=== PATIENT | male | born 1950 | race Caucasian/White ===

== ENCOUNTER → 2018-05-01 | Outpatient (CLI) | payer MEDICARE, OTHER ==
[~2018-05-01] MED LIST: CYMBALTA PO; LYRICA PO
--- NOTE | 2018-05-01 13:58 | Diagnostic Imaging Report ---
EXAM: Scrotal Ultrasound with Duplex INDICATION: \S\SPERMATOCELE OF EPIDIDYMIS COMPARISON: None TECHNIQUE: Transverse and longitudinal images were obtained of the scrotum with grayscale imaging, color Doppler and spectral waveform analysis. FINDINGS: Right testis: Size: 3.6 x 1.8 x 2.5 cm, normal in size. Echogenicity: Normal Mass/Cysts: None. Few punctate echogenic foci are seen, representing microcalcifications. Left testis: Size: 3.3 x 2.1 x 2.7 cm, normal in size. Echogenicity: Normal Mass/Cysts: 0.2 cm lateral midpole cyst. Epididymis: Appearance: Normal in size without increased vascularity. Mass/Cysts: 0.3 cm right epididymal head cyst/spermatocele. 0.2 cm left femoral head cyst/spermatocele. Extratesticular: Masses: None Hydrocele: None Varicocele: None Doppler: Normal arterial flow to both testes and symmetrical flow on color Doppler evaluation is seen. No evidence of testicular torsion. Prominent bilateral inguinal lymph nodes are seen, containing fatty hilum. IMPRESSION: 1. No evidence of testicular torsion. 2. Unremarkable scrotal ultrasound exam. 3. Subcentimeter bilateral epididymal head cysts/spermatoceles. 4. Few nonspecific punctate right testicular calcifications. Signed by: Dr. Juan Carlos Benítez MD on 05/01/2018 1:55 PM
== END ==
LOC: US 11:43
PROVIDERS: ATTEND Urology
DX: N43.40 Spermatocele of epididymis, unspecified (principal)
CPT/HCPCS: 76870; 93976

== ENCOUNTER 2020-01-29 11:50 | Observation (INO) | payer MEDICARE, OTHER ==
[~2020-01-29] VITALS: Ht 180.3 cm; Wt 108.9 kg
--- OUTSIDE RECORDS SUMMARY | 2020-01-29 11:55 | XMS REPORT | Encounter Summary ---
Author Organization Unknown Address [address] [place] [address] Phone [phone] Care Team Providers Care Director Of Employer Services Name Role Phone Dr. Uday Woods 3 [phone] Lauri Yoder MD 107 [phone] Francisca Cullen MD 109 [phone] Reason for Visit Cellulitis and abscess of back Instructions 1. Cellulitis and abscess of back 2. Body mass index 30+ - obesity body mass index: care instructions learning about healthy weight Discussion Note: None recorded. Plan of Care Reminders Provider Appointments Est Patient 06/25/2019 10:30AM Uday Osullivan MD Est Patient 07/04/2019 8:00AM Uday Osullivan MD Lab None recorded. Referral None recorded. Procedures None recorded. Surgeries None recorded. Imaging None recorded. Medications Name Start Date Bactrim DS 800 mg-160 mg tablet Take 1 tablet every 12 hours by oral route as directed for 10 days. doxycycline monohydrate 100 mg tablet Take 1 tablet twice a day by oral route as directed for 10 days. doxycycline monohydrate 100 mg tabs finasteride 5 mg tablet Take 1 tablet every day by oral route. Lyrica 200 mg capsule Take 1 capsule every day by oral route as needed. mupirocin 2 % topical ointment APPLY A SMALL AMOUNT TO THE AFFECTED AREA BY TOPICAL ROUTE ONCE PER DAY FOR 10 DAYS Medications Administered None recorded. Vitals Height Weight BMI Blood Pressure 5 ft 8.6 in 233.2 lbs 34.8 kg/m2 130/70 mm[Hg] Lab Results None recorded. Allergies Code Code System Name Reaction Severity Status Onset 1950 RxNorm Codeine Active Problems Name Status Onset Date Source Hyperlipidemia Active 06/28/2016 Benign Prostatic Hyperplasia Active 06/28/2016 Anxiety Active 11/22/2017 Peripheral Nerve Disease Active 07/19/2018 Cellulitis and Abscess of Back Active 06/21/2019 Procedures Date Name Performed by Colonoscopy Information not avai lab Vaccine List Vaccine Type pneumococcal conjugate PCV 13 08/18/20170.5 mL zoster 08/18/20170.65 mL Social History Tobacco Smoking Status Never Smoker Past Encounters 06/22/2019 Cellulitis and Abscess of Back Uday Osullivan MD: [address] [place] [phone], Ph. 06/21/2019 Cellulitis and Abscess of Back; Body Mass Index 30+ - Obesity Uday Osullivan MD: [address] [place] [phone], Ph. 06/20/2019 Cellulitis and Abscess of Back; Body Mass Index 30+ - Obesity; Morbid Obesity Uday Osullivan MD: [address] [place] [phone], Ph. 06/19/2019 Cellulitis and Abscess of Back; Body Mass Index 30+ - Obesity; Morbid Obesity; Peripheral Vascular Disease Uday Osullivan MD: [address] [place] [phone], Ph. 06/15/2019 Cellulitis and Abscess of Back; Immunization Refused; Influenza Vaccination Declined; Body Mass Index 30+ - Obesity Uday Osullivan MD: [address] [place] [phone], Ph. History of Present Illness Note:F/u on abscess s/p I&D day #2. Doing well. Pain intensity /. Denies fever. Taking bactrim day 7 and doxycycline day 12/10. Review of Systems Comprehensive General Adult ROS Reported By: Patient Constitutional: Constitutional: no fever Cardiovascular: Cardiovascular: no chest kayleen n Respiratory: Respiratory: no cough, no wh eezing, no shortness of breath Gastrointestinal: Gastrointestinal: no abdomin al pain Neurologic: Neurologic: no loss of consc iousness, no headaches Physical Exam General Adult Exam (male) Reported By: Patient Constitutional: Level of Distress: NAD Eyes: Lids and Conjunctivae: non-i njected, no discharge Neck: Neck: trachea midline Lungs: Auscultation: breath sounds normal Cardiovascular: Heart Auscultation: RRR, nor mal S1, normal S2, no murmurs Musculoskeletal:: Motor Strength and Tone: nor mal, normal tone Neurologic: Gait and Station: normal gai t Skin: Inspection and palpation: ; Mass in the posterior part of R shoulder, erythematous, soft, tender with palpation, 6-7 cms in diameter approximately. Draining purulent discharge. Packing strip in place
--- OUTSIDE RECORDS SUMMARY | 2020-01-29 11:55 | XMS REPORT | Encounter Summary ---
Author Organization Unknown Address [address] [place] [address] Phone [phone] Care Team Providers Care Pharmacy Data Analyst Name Role Phone Dr. Uday Woods 3 [phone] Lauri Yoder MD 107 [phone] Francisca Cullen MD 109 [phone] Reason for Visit skin leison/mole Instructions 1. Cellulitis and abscess of back Bactrim DS 800 mg-160 mg tablet ceftriaxone 1 gram solution for inject ion 2. Immunization refused 3. Influenza vaccination declined 4. Body mass index 30+ - obesity body mass index: care instructions learning about healthy weight Discussion Note: None recorded. Plan of Care Reminders Provider Appointments Est Patient 06/21/2019 11:45AM Uday Osullivan MD Est Patient 07/04/2019 8:00AM Uday Osullivan MD Lab None recorded. Referral None recorded. Procedures None recorded. Surgeries None recorded. Imaging None recorded. Medications Name Start Date Bactrim DS 800 mg-160 mg tablet Take 1 tablet every 12 hours by oral route as directed for 10 days. ceftriaxone 1 gram solution for injectio n Take 1 g by injection route. clonazepam 0.5 mg tablet TAKE 1 TABLET BY MOUTH ONCE DAILY NEEDED finasteride 5 mg tablet Take 1 tablet every day by oral route. Lyrica 200 mg capsule Take 1 capsule every day by oral route as needed. restasis 0.05 % emul twice a day. BD 06-15-19 simvastatin 40 mg tablet Take 1 tablet every day by oral route for 90 days. tamsulosin 0.4 mg capsule TAKE 1 CAPSULE BY MOUTH ONCE DAILY DIRECTED Medications Administered Name Date ceftriaxone 1 gram solution for injectio n Take 1 g by injection route. [id number]:26:53 Vitals Height Weight BMI Blood Pressure 5 ft 8.6 in 235.6 lbs 35.2 kg/m2 130/68 mm[Hg] Lab Results None recorded. Allergies Code Code System Name Reaction Severity Status Onset 2670 RxNorm Codeine Active Problems Name Status Onset Date Source Hyperlipidemia Active 06/28/2016 Benign Prostatic Hyperplasia Active 06/28/2016 Anxiety Active 11/22/2017 Peripheral Nerve Disease Active 07/19/2018 Procedures Date Name Performed by Colonoscopy Information not avai lable Vaccine List Vaccine Type pneumococcal conjugate PCV 13 08/18/20170.5 mL zoster 08/18/20170.65 mL Social History Tobacco Smoking Status Never Smoker Past Encounters 06/15/2019 Cellulitis and Abscess of Back; Immunization Refused; Influenza Vaccination Declined; Body Mass Index 30+ - Obesity Uday Osullivan MD: [address] [place] [phone], Ph. History of Present Illness Note:Pt presents with a bump in the posterior right shoulder. Pt first noticed the bump about 6-8 months ago but it did not cause any pain. Pt states that it is painful to touch, rates the pain 8/10 since a few days ago. Pt denies itchiness or trying any otc medications. Review of Systems Comprehensive General Adult ROS Reported By: Patient Constitutional: Constitutional: no fever Cardiovascular: Cardiovascular: no chest kayleen n Respiratory: Respiratory: no cough, no wh eezing, no shortness of breath Gastrointestinal: Gastrointestinal: no abdomin al pain Integumentary: Skin: growths/lesions Neurologic: Neurologic: no loss of consc iousness, no headaches Physical Exam General Adult Exam (male) Reported By: Patient Constitutional: General Appearance: healthy- appearing. Level of Distress: NAD Eyes: Lids and Conjunctivae: non-i njected, no discharge Neck: Neck: trachea midline Lungs: Auscultation: breath sounds normal Cardiovascular: Heart Auscultation: RRR, nor mal S1, normal S2, no murmurs Musculoskeletal:: Motor Strength and Tone: nor mal, normal tone Neurologic: Gait and Station: normal gai t Skin: Inspection and palpation: ; Mass in the posterior part of R shoulder, erythematous, soft, mobile and tender with palpation, 10 cms in diameter approximately
--- OUTSIDE RECORDS SUMMARY | 2020-01-29 11:55 | XMS REPORT | Encounter Summary ---
Author Organization Unknown Address [address] [place] [address] Phone [phone] Care Team Providers Care Mobile Phone Salesperson Name Role Phone Dr. Uday Woods 3 [phone] Lauri Yoder MD 107 [phone] Francisca Cullen MD 109 [phone] Reason for Visit cellulitis Instructions 1. Cellulitis and abscess of back 2. Body mass index 30+ - obesity body mass index: care instructions learning about healthy weight 3. Morbid obesity Discussion Note: None recorded. Plan of Care Reminders Provider Appointments Est Patient 07/04/2019 8:00AM Uday Osullivan MD [...] every day by oral route as needed. Medications Administered None recorded. Vitals Height Weight BMI Blood Pressure 5 ft 8.6 in 233.2 lbs 34.8 kg/m2 131/74 mm[Hg] Lab Results None recorded. Allergies Code Code System Name Reaction Severity Status Onset 5590 RxNorm Codeine Active Problems Name Status Onset [...] Tobacco Smoking Status Never Smoker Past Encounters 06/21/2019 Body Mass Index 30+ - Obesity; Cellulitis and Abscess of Back Uday Osullivan MD: [address] [place] [phone], Ph. 06/20/2019 Cellulitis and Abscess of Back; Body Mass Index 30+ - Obesity; Morbid Obesity Uday Osullivan MD: [address] [place] [phone], Ph. 06/19/2019 Cellulitis and Abscess of Back; Body Mass Index 30+ - Obesity; Morbid Obesity; Peripheral Vascular Disease Uday Osullivan MD: [address] [place] [phone], Ph. 06/15/2019 Cellulitis and Abscess of Back; Immunization Refused; Influenza Vaccination Declined; Body Mass Index 30+ - Obesity Uday Osullivan MD: [address] [place] [phone], Ph. History of Present Illness Note:F/u on abscess s/p I&D. Feeling better. Pain has decreased progressively (intensity 11/12). Denies fever. Taking bactrim day 03/12 and doxycycline day 11/12. Review of Systems Comprehensive General Adult ROS Reported By: Patient Constitutional: Constitutional: no fever Cardiovascular: Cardiovascular: no chest kayleen n Respiratory: Respiratory: no cough, no wh eezing, no shortness of breath Gastrointestinal: Gastrointestinal: no abdomin al pain Neurologic: Neurologic: no loss of consc iousness, no headaches Physical Exam General Adult Exam (male) Reported By: Patient Constitutional: Level of Distress: mild dist ress Eyes: Lids and Conjunctivae: non-i njected, no [...] erythematous, soft, mobile and tender with palpation, 8 cms in diameter approximately. Draining purulent discharge. Packing strip in place
--- OUTSIDE RECORDS SUMMARY | 2020-01-29 11:55 | XMS REPORT | Encounter Summary ---
Author Organization Unknown Address [address] [place] [address] Phone [phone] Care Team Providers Care Dumper Bulk System Name Role Phone Dr. Uday Woods 3 [phone] Lauri Yoder MD 107 [phone] Francisca Cullen MD 109 [phone] Reason for Visit Anxiety; Advance Care Plan; AWV [facility] Male (VFP) Instructions 1. Adult health examination CMP, serum or plasma lipid panel, serum HbA1c (hemoglobin A1c), blood PSA, serum or plasma TSH, serum or plasma 2. Anxiety buspirone 10 mg tablet 3. Dry eyes 4. Advance directive discussed with van ent advance care planning: care instructio estela advance care planning: care instructio ns 5. Depression screening 6. Body mass index 30+ - obesity body mass index: care instructions learning about healthy weight Discussion Note: None recorded. Plan of Care Patient Instructions It was good to see you in the office [facility] for your Medicare Annual Wellness Visit. You have been provided some information on healthy nutrition, including a diet rich in fruits and vegetables, minimizing simple carbohydrates, salt, and saturated fats. I want to encourage regular cardiovascular exercise such as walking at least 30 minutes daily, 5 times per week. Please remember to schedule any preventive health measures that we talked about today. You have also been provided education on fall prevention and community- based lifestyle interventions to help reduce health risks and promote healthy living in your Annual Wellness folder. Screening Recommendations 1. Vaccines Pneumonia: Recommended today Influenza: Recommended today 2. Colorectal Cancer Screening: Colonoscopy (every 10 years) Recommended today 3. Annual Prostate Screening 4. Annual Depression Screening 5. Annual Alcohol Screening 6. Annual Fall Risk Screening 7. Annual Health Risk Assessment Patient Instructions on Filing Advance Directives Be sure that you have easy access to your paperwork for your medical power of commercial lines underwriter and advanced directives. Be sure that the designated person as well as important family members have copies of those forms as well. Please have contact information of your designee readily available. In the event of hospitalization, please bring those important documents with you for reference. Reminders Provider Appointments None recorded. Lab CMP, Serum or Plasma 10/19/2019 [facility] - Laboratory Lipid Panel, Serum 10/19/2019 [facility] HbA1C (Hemoglobin a1C), Blood 10/19/2019 [facility] PSA, Serum or Plasma 10/19/2019 [facility] - Laboratory TSH, Serum or Plasma 10/19/2019 [facility] - Laboratory Referral None recorded. Procedures None recorded. Surgeries None recorded. Imaging None recorded. Medications Name Start Date buspirone 10 mg tablet Take 1 tablet twice a day by oral route. Lyrica 200 mg capsule Take 1 capsule every day by oral route as needed. mupirocin 2 % topical ointment APPLY A SMALL AMOUNT TO THE AFFECTED AREA BY TOPICAL ROUTE ONCE PER DAY FOR 10 DAYS simvastatin 40 mg tablet TAKE 1 TABLET BY MOUTH ONCE DAILY DUE JENNIFER!! Medications Administered None recorded. Vitals Height Weight BMI Blood Pressure 5 ft 8.6 in 222.8 lbs 33.3 kg/m2 126/76 mm[Hg] Results Lab Results None recorded. 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 History of Present Illness Mini Cog Reported By: Patient Functional Ability: Personal/Social/ Draw a cloc k and write in the numbers in the correct place, and set the time to 10 minutes after 11 o'clock was completed correctly? Yes, 3 word recall: Your nurse or doctor will ask you to remember 3 words. In 5 minutes, they will ask you to repeat them. Patient recalled 3 words Opioid Use Assessment Reported By: Patient Opioid Use Assessment:: Current Use of Opioids : no use of opioids (no further questions required) Note:<div>Patient presents to the clinic today with the following concern(s):< div> <div>1) AWV<div> <div><div>2) DRY EYES</div><div> - followed by mash filter operator who believes tamsulosin is causing volume depletion and dry eyes. Uses prescribed eye drops with limited relief. Tamsulosin has helped with nocturia but has difficulty seeing and driving with dry eyes. </div><div>
</div><div> 3) ANXIETY </div><div>- has been taking clonazepam 0.5mg for several months. Breaks pill into fourths and takes throughout the day. States whole tablet makes him sleepy and half tablet makes him drowsy. Believes this regimen helps keep him calm throughout the day. <div>
</div></div></div></div></div></div></div> <div>
</div>I'd like to talk about what is ahead with your illness and do some thinking in advance about what is important to you so I can make sure we provide you with the care you want-is that okay? {{Yes*|No}} Review of Systems Comprehensive General Adult ROS Reported By: Patient Constitutional: Constitutional: no fever, no night sweats, no significant weight gain, no significant weight loss, no exercise intolerance Eyes: Eyes: no vision change, no i rritation, dry eyes ENMT: Ears: no difficulty hearing, no ear pain. Nose: no frequent nosebleeds, no nose problems, no sinus problems. Mouth/Throat: no sore throat, no bleeding gums, no snoring, no dry mouth, no mouth ulcers, no oral abnormalities, no teeth problems Cardiovascular: Cardiovascular: no chest kayleen n, no arm pain on exertion, no shortness of breath when walking, no shortness of breath when lying down, no palpitations, no known heart murmur, no lightheadedness Respiratory: Respiratory: no cough, no wh eezing, no shortness of breath, no coughing up blood, no sleep apnea Gastrointestinal: Gastrointestinal: no abdomin al pain, no nausea, no vomiting, no constipation, normal appetite, no diarrhea, not vomiting blood, no dyspepsia, no GERD Genitourinary: Genitourinary: no incontinen ce, no difficulty urinating, no hematuria, no increased frequency Musculoskeletal: Musculoskeletal: no muscle a ches, no muscle weakness, no arthralgias/joint pain, no back pain, no swelling in the extremities Integumentary: Skin: no abnormal mole, no j aundice, no rashes, no laceration Neurologic: Neurologic: no loss of consc iousness, no weakness, no numbness, no seizures, no dizziness, no migraines, no headaches, no tremor Psychiatric: Psych: no depression, no sle ep disturbances, feeling safe in a relationship, no alcohol abuse, no anxiety, no hallucinations, no suicidal thoughts Endocrine: Endocrine: no fatigue Hematologic/Lymphatic: Hematologic/Lymphatic no swo llen glands, no bruising, no excessive bleeding Allergic/Immunologic: Allergy/Immunologic: no runn y nose, no sinus pressure, no itching, no hives, no frequent sneezing Physical Exam General Adult Exam (male) Reported By: Patient Constitutional: General Appearance: healthy- appearing, well-nourished, well- developed. Level of Distress: NAD. Ambulation: ambulating normally Psychiatric: Insight: good judgement. Men gary Status: active and alert, normal mood, normal affect. Memory: recent memory normal, remote memory normal Head: Head: normocephalic, atrauma tic Eyes: Lids and Conjunctivae: non-i njected, no discharge, no pallor. Pupils: PERRLA. Corneas: grossly intact. EOM: EOMI. Lens: clear. Sclerae: non-icteric. Vision: peripheral vision grossly intact, acuity grossly intact ENMT: Ears: no lesions on external ear, EACs clear, TMs clear, TM mobility normal. Hearing: no hearing loss. Nose: no lesions on external nose, nares patent, no septal deviation, nasal passages clear, no sinus tenderness, no nasal discharge. Lips, Teeth, and Gums: no mouth or lip ulcers, no bleeding gums, normal dentition. Oropharynx: moist mucous membranes, no erythema, no exudates, tonsils not enlarged Neck: Neck: supple, trachea midlin e, no masses, FROM. Thyroid: no enlargement, non-tender, no nodules Lungs: Respiratory effort: no dyspn ea. Percussion: no dullness, flatness, or hyperresonance. Auscultation: breath sounds normal, good air movement, no wheezing, no rales/crackles, no rhonchi Cardiovascular: Apical Impulse: not displace d. Heart Auscultation: RRR, normal S1, normal S2, no murmurs, no rubs, no gallops. Pulses including femoral / pedal: normal throughout Abdomen: Bowel Sounds: normal. Inspec tion and Palpation: soft, non-distended, no tenderness, no guarding, no rebound tenderness, no masses. Liver: non-tender, no hepatomegaly. Spleen: non-tender, no splenomegaly. Hernia: none palpable Musculoskeletal:: Motor Strength and Tone: nor mal, normal tone. Joints, Bones, and Muscles: normal movement of all extremities, no contractures, no bony abnormalities, no malalignment, no tenderness. Extremities: no cyanosis, no edema, no varicosities Neurologic: Gait and Station: normal gai t, normal station. Cranial Nerves: grossly intact. Sensation: grossly intact. Reflexes: DTRs 2+ bilaterally throughout Skin: Inspection and palpation: no rash, no lesions, no abnormal nevi, no ulcer, no induration, no nodules, good turgor, no jaundice Back: Thoracolumbar Appearance: no rmal curvature"
--- OUTSIDE RECORDS SUMMARY | 2020-01-29 11:55 | XMS REPORT | Encounter Summary ---
Author Organization Unknown Address [address] [place] [address] Phone [phone] Care Team Providers Care Program Schedule Clerk Name Role Phone Dr. Uday Woods 3 [phone] Lauri Yoder MD 107 [phone] Francisca Cullen MD 109 [phone] Reason for Visit other - see typed reason Instructions 1. Cellulitis and abscess of back mupirocin 2 % topical ointment Discussion Note: None recorded. Patient educational handouts: No information available. Plan of Care Reminders Provider Appointments Est Patient 07/05/2019 8:00AM Uday Osullivan MD Lab None recorded. Referral None recorded. Procedures None recorded. Surgeries None recorded. Imaging None recorded. Medications Name Start Date Bactrim DS 800 mg-160 mg tablet Take 1 tablet every 12 hours by oral route as directed for 10 days. doxycycline monohydrate 100 mg tablet Take 1 tablet twice a day by oral route as directed for 10 days. finasteride 5 mg tablet Take 1 tablet every day by oral route. Lyrica 200 mg capsule Take 1 capsule every day by oral route as needed. mupirocin 2 % topical ointment APPLY A SMALL AMOUNT TO THE AFFECTED AREA BY TOPICAL ROUTE ONCE PER DAY FOR 10 DAYS Medications Administered None recorded. Vitals Height Weight BMI Blood Pressure 5 ft 8.6 in 233 lbs 34.8 kg/m2 130/64 mm[Hg] Lab Results None recorded. Allergies Code [...] Tobacco Smoking Status Never Smoker Past Encounters 06/25/2019 Cellulitis and Abscess of Back; Obesity Uday Osullivan MD: [address] [place] [phone], Ph. 06/22/2019 Cellulitis and Abscess of Back Uday Osullivan MD: [address] [place] [phone], Ph. 06/21/2019 Cellulitis and Abscess of Back; Body Mass Index 30+ - Obesity Uday Osullivan MD: [address] [place] [phone], Ph. 06/20/2019 Cellulitis and Abscess of Back; Body Mass Index 30+ - Obesity; Morbid Obesity Uday Osullivan MD: [address] [place] [phone], Ph. 06/19/2019 Cellulitis and Abscess of Back; Body Mass Index 30+ - Obesity; Morbid Obesity; Peripheral Vascular Disease Uday Osullivan MD: [address] [place] [phone], Ph. 06/15/2019 Cellulitis and Abscess of Back; Immunization Refused; Influenza Vaccination Declined; Body Mass Index 30+ - Obesity Uday Osullivan MD: [address] [place] [phone], Ph. History of Present Illness Note:F/u on abscess s/p I&D day #3. Doing well. Pain intensity 2/10. Denies fever. Taking bactrim day 8 and doxycycline day 01/10. Review of Systems Comprehensive General Adult ROS [...] posterior part of R shoulder, erythematous, soft, mildly tender with palpation, 5 cms in diameter approximately. Draining purulent discharge. Packing strip in place
--- OUTSIDE RECORDS SUMMARY | 2020-01-29 11:55 | XMS REPORT | Encounter Summary ---
Author Organization Unknown Address [address] [place] [address] Phone [phone] Care Team Providers Care Video Tape Duplicator Name Role Phone Dr. Uday Woods 3 [phone] Lauri Yoder MD 107 [phone] Francisca Cullen MD 109 [phone] Reason for Visit Cellulitis and abscess of back Instructions 1. Cellulitis and abscess of back Discussion Note: None recorded. Patient educational handouts: No information available. Plan of Care Reminders Provider Appointments None recorded. Lab None recorded. Referral None recorded. Procedures None recorded. Surgeries None recorded. Imaging None recorded. Medications Name Start Date Keflex 500 mg capsule Take 1 capsule every 8 hours by oral route as directed for 10 days. Lyrica 200 mg capsule Take 1 capsule every day by oral route as needed. mupirocin 2 % topical ointment APPLY A SMALL AMOUNT TO THE AFFECTED AREA BY TOPICAL ROUTE ONCE PER DAY FOR 10 DAYS Medications Administered None recorded. Vitals Height Weight BMI Blood Pressure 5 ft 8.6 in 227 lbs 33.9 kg/m2 120/68 mm[Hg] Results Lab Results None recorded. Allergies Code Code System Name Reaction Severity Status Onset 5510 RxNorm Codeine Active Problems Name Status Onset [...] Tobacco Smoking Status Never Smoker Past Encounters 07/10/2019 Cellulitis and Abscess of Back Uday Osullivan, MD: [address] [place] [phone], Ph. 07/05/2019 Cellulitis and Abscess of Back Uday Osullivan MD: [address] [place] [phone], Ph. 06/25/2019 Cellulitis and Abscess of Back; Contact Dermatitis; Obesity Uday Osullivan MD: [address] [place] [phone], Ph. 06/22/2019 Cellulitis and Abscess of Back Udayhyacinth Osullivan MD: [address] [place] [phone], Ph. 06/21/2019 Cellulitis and Abscess of Back; Body Mass Index 30+ - Obesity Uday Osullivan MD: [address] [place] [phone], Ph. 06/20/2019 Cellulitis and Abscess of Back; Body Mass Index 30+ - Obesity; Morbid Obesity Uday Osullivan MD: [address] [place] [phone], Ph. 06/19/2019 Cellulitis and Abscess of Back; Body Mass Index 30+ - Obesity; Morbid Obesity; Peripheral Vascular Disease Uday Osullivan MD: [address] [place] [phone], Ph. 06/15/2019 Cellulitis and Abscess of Back; Immunization Refused; Influenza Vaccination Declined; Body Mass Index 30+ - Obesity Uday Osullivan MD: [address] [place] [phone], Ph. History of Present Illness Note:F/u on abscess. S/p I&D on 06/19/19. Doing well. Pt completed treatment with doxycycline. Denies pain or discharge. Review of Systems:ROS as noted in the HPI Review of Systems Comprehensive General Adult ROS [...] no discharge Neck: Neck: trachea midline Lungs: Respiratory effort: no dyspn ea Musculoskeletal:: Motor Strength and Tone: nor mal, normal tone Neurologic: Gait and Station: normal gai t Skin: Inspection and palpation: ; Induration in the posterior part of R shoulder, 1 cm in diameter approximately. Non tender. No discharge. Mild erythema
--- OUTSIDE RECORDS SUMMARY | 2020-01-29 11:55 | XMS REPORT | Encounter Summary ---
Author Organization Unknown Address [address] [place] [address] Phone [phone] Care Team Providers Care Solar Consultant Name Role Phone Dr. Uday Woods 3 [phone] Lauri Yoder MD 107 [phone] Francisca Cullen MD 109 [phone] Reason for Visit cellulitis Instructions 1. Cellulitis and abscess of back ceftriaxone 1 gram solution for inject ion doxycycline monohydrate 100 mg tablet 2. Body mass index 30+ - obesity body mass index: care instructions learning about healthy weight 3. Morbid obesity 4. Peripheral vascular disease Discussion Note: None recorded. Plan of Care Reminders Provider Appointments [facility] 06/21/2019 8:30AM Uday Osullivan MD Est Patient 07/04/2019 8:00AM Uday Osullivan MD Lab None recorded. Referral None recorded. Procedures None recorded. Surgeries None recorded. Imaging None recorded. Medications Name Start Date Bactrim DS 800 mg-160 mg tablet Take 1 tablet every 12 hours by oral route as directed for 10 days. ceftriaxone 1 gram solution for injectio n Take 1 g by injection route. doxycycline monohydrate 100 mg tablet Take 1 tablet twice a day by oral route as directed for 10 days. finasteride 5 mg tablet Take 1 tablet every day by oral route. Lyrica 200 mg capsule Take 1 capsule every day by oral route as needed. sulfamethoxazole/trimethoprim ds 800-160 mg tabs once a night. Medications Administered Name Date ceftriaxone 1 gram solution for injectio n Take 1 g by injection route. [id number]:38:00 Vitals Height Weight BMI Blood Pressure 5 ft 8.6 in 233.4 lbs 34.9 kg/m2 127/79 mm[Hg] Lab Results None recorded. Allergies Code Code System Name Reaction Severity Status Onset 2669 RxNorm Codeine Active Problems Name Status Onset Date Source Hyperlipidemia Active 06/28/2016 Benign Prostatic Hyperplasia Active 06/28/2016 Anxiety Active 11/22/2017 Peripheral Nerve Disease Active 07/19/2018 Procedures Date Name Performed by Colonoscopy Information not avai lable Vaccine List Vaccine Type pneumococcal conjugate PCV 13 08/18/20170.5 mL zoster 08/18/20170.65 mL Social History Tobacco Smoking Status Never Smoker Past Encounters 06/20/2019 Cellulitis and Abscess of Back; Body Mass Index 30+ - Obesity Uday Osullivan MD: [address] [place] [phone], Ph. 06/19/2019 Cellulitis and Abscess of Back; Body Mass Index 30+ - Obesity; Morbid Obesity; Peripheral Vascular Disease Uday Osullivan MD: [address] [place] [phone], Ph. 06/15/2019 Cellulitis and Abscess of Back; Immunization Refused; Influenza Vaccination Declined; Body Mass Index 30+ - Obesity Uday Osullivan MD: [address] [place] [phone], Ph. History of Present Illness Note:presents with a bump in the posterior right shoulder. Pt first noticed the bump about 6-8 months ago but it did not cause any pain. Pt states that it is painful to touch, rates the pain 10/10. Pt states that pain has worsened since his last visit,(last Tuesday). Pt also states that it now has puss pockets, first noticed last night but seems as if they have multiplied over night. Pt states that it is very red, inflamed and sensitive to touch. Pt has not completed the course of the antibiotic. Lesion has moved further down back since last visit causing intense pain. Pain is exacerbated with movement. Review of Systems Comprehensive General Adult ROS Reported By: Patient Constitutional: Constitutional: no fever Cardiovascular: Cardiovascular: no chest kayleen n Respiratory: Respiratory: no cough, no wh eezing, no shortness of breath Gastrointestinal: Gastrointestinal: no abdomin al pain Neurologic: Neurologic: no loss of consc iousness, no headaches Physical Exam General Adult Exam (male) Reported By: Patient Constitutional: Level of Distress: moderate distress Eyes: Lids and Conjunctivae: non-i njected, no [...] tender with palpation, 10 cms in diameter approximately. Draining purulent discharge
--- OUTSIDE RECORDS SUMMARY | 2020-01-29 11:55 | XMS REPORT | Encounter Summary ---
Author Organization Unknown Address [address] [place] [address] Phone [phone] Care Team Providers Care Artificial Breeding Distributor Name Role Phone Dr. Uday Woods 3 [phone] Lauri Yoder MD 107 [phone] Francisca Cullen MD 109 [phone] Reason for Visit other - see typed [...] Abscess of Back; Obesity Uday Osullivan MD: [address] [place] [phone], Ph. 06/22/2019 Cellulitis and Abscess of Back Uday Osullivan MD: [address] [place] [phone], Ph. 06/21/2019 Cellulitis and Abscess of Back; Body Mass Index 30+ - Obesity Uday Osullivan MD: [address] [place] [phone], Ph. 06/20/2019 Cellulitis and Abscess of Back; Body Mass Index 30+ - Obesity; Morbid Obesity Uday Osullivan MD: [address] [place] [phone], Ph. 06/19/2019 Cellulitis and Abscess of Back; Body Mass Index 30+ - Obesity; Morbid Obesity; Peripheral Vascular Disease Uday Osullivan MD: [address] [place] [phone], Ph. 06/15/2019 Cellulitis and Abscess of Back; Immunization Refused; Influenza Vaccination Declined; Body Mass Index 30+ - Obesity Uday Osullivan MD: [address] [place] [phone], Ph. History of Present Illness Note:F/u on [...] posterior part of R shoulder, erythematous, soft, mild tender with palpation, 5 cms in diameter approximately. Draining purulent discharge. Packing strip in place
--- OUTSIDE RECORDS SUMMARY | 2020-01-29 11:55 | XMS REPORT ---
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 Problem Active 2019-07-03 00:00:00 Morbid obesity Morbid Obesity Problem Active 2019-07-03 00:00:00 Senile purpura Senile Purpura Problem Active 2019-07-03 00:00:00 Cellulitis and abscess of back Cellulitis and Abscess of Back Probl em Active 2019-06-21 00:00:00 Peripheral vascular disease Peripheral Vascular Disease Problem Active 2019-06-19 00:00:00 Peripheral nerve disease Peripheral Nerve Disease Problem Acti ve 2018-07-19 00:00:00 Anxiety Anxiety Problem Active 2017-11-22 00:00:00 Hyperlipidemia Hyperlipidemia Problem Active 2016-06-28 00:00:00 Benign prostatic hyperplasia Benign Prostatic Hyperplasia Problem Active 2016-06-28 00:00:00 Allergies, Adverse Reactions, Alerts Allergy Name Allergy Type Status Severity Reaction(s) Onset Date Inacti ve Date Treating Clinician Comments Codeine Allergy to substance Active Medications Ordered Medication Name Filled Medication Name Start Date Stop Da te Current Medication? Ordering Clinician Indication Dosage Frequency Signature (SIG) Comments Components buspirone 10 mg tablet Take 1 tablet twice a day by or al route. buspirone 10 mg tablet Take 1 tablet twice a day by oral route. No 1 BID buspirone 10 mg tablet Take 1 tablet twice a day by oral route. Lyrica 200 mg capsule Take 1 capsule every day by oral route as needed. Lyrica 200 mg capsule Take 1 capsule every day by oral route as needed. No 1capsule(s) Q1D Lyrica 200 mg capsule Take 1 capsule every day by oral route as needed. mupirocin 2 % topical ointment APPLY A S MALL AMOUNT TO THE AFFECTED AREA BY TOPICAL ROUTE ONCE PER DAY FOR 10 DAYS mupirocin 2 % topical ointment APPLY A SMALL AMOUNT TO THE AFFECTED AREA BY TOPICAL ROUTE ONCE PER DAY FOR 10 DAYS No mupirocin 2 % t opical ointment APPLY A SMALL AMOUNT TO THE AFFECTED AREA BY TOPICAL ROUTE ONCE PER DAY FOR 10 DAYS simvastatin 40 mg tablet TAKE 1 TABLET BY MOUTH ONCE D AILY DUE JENNIFER!! simvastatin 40 mg tablet TAKE 1 TABLET BY MOUTH ONCE DAILY DUE JENNIFER!! No simvastatin 40 mg tablet MARYANN E 1 TABLET BY MOUTH ONCE DAILY DUE JENNIFER!! Immunizations Ordered Immunization Name Filled Immunization Name Date Sta tus Comments pneumococcal conjugate PCV 13 pneumococcal conjugate PCV 13 2016 11:32:00 Completed zoster live zoster live 2017-08-18 11:28:00 Completed Vital Signs Vital Name Observation Time Observation Value Comments BP Diastolic 2019-10-19 00:00:00 76 mm[Hg] Height 2019-10-19 00:00:00 68.6 [in_i] BP Systolic 2019-10-19 00:00:00 126 mm[Hg] Body Weight 2019-10-19 00:00:00 222.8 [lb_av] BP Diastolic 2019-07-10 00:00:00 68 mm[Hg] Height 2019-07-10 00:00:00 68.6 [in_i] BP Systolic 2019-07-10 00:00:00 120 mm[Hg] Body Weight 2019-07-10 00:00:00 227 [lb_av] BP Diastolic 2019-07-05 00:00:00 72 mm[Hg] Height 2019-07-05 00:00:00 68.6 [in_i] BP Systolic 2019-07-05 00:00:00 130 mm[Hg] Body Weight 2019-07-05 00:00:00 229.6 [lb_av] BP Diastolic 2019-06-25 00:00:00 68 mm[Hg] Height 2019-06-25 00:00:00 68.6 [in_i] BP Systolic 2019-06-25 00:00:00 130 mm[Hg] Body Weight 2019-06-25 00:00:00 232.8 [lb_av] BP Diastolic 2019-06-22 00:00:00 64 mm[Hg] Height 2019-06-22 00:00:00 68.6 [in_i] BP Systolic 2019-06-22 00:00:00 130 mm[Hg] Body Weight 2019-06-22 00:00:00 233 [lb_av] BP Diastolic 2019-06-21 00:00:00 70 mm[Hg] Height 2019-06-21 00:00:00 68.6 [in_i] BP Systolic 2019-06-21 00:00:00 130 mm[Hg] Body Weight 2019-06-21 00:00:00 233.2 [lb_av] BP Diastolic 2019-06-20 00:00:00 74 mm[Hg] Height 2019-06-20 00:00:00 68.6 [in_i] BP Systolic 2019-06-20 00:00:00 131 mm[Hg] Body Weight 2019-06-20 00:00:00 233.2 [lb_av] BP Diastolic 2019-06-19 00:00:00 79 mm[Hg] Height 2019-06-19 00:00:00 68.6 [in_i] BP Systolic 2019-06-19 00:00:00 127 mm[Hg] Body Weight 2019-06-19 00:00:00 233.4 [lb_av] BP Diastolic 2019-06-15 00:00:00 68 mm[Hg] Height 2019-06-15 00:00:00 68.6 [in_i] BP Systolic 2019-06-15 00:00:00 130 mm[Hg] Body Weight 2019-06-15 00:00:00 235.6 [lb_av] BP Diastolic 2019-04-03 00:00:00 72 mm[Hg] Height 2019-04-03 00:00:00 68.6 [in_i] BP Systolic 2019-04-03 00:00:00 138 mm[Hg] Body Weight 2019-04-03 00:00:00 233 [lb_av] BP Diastolic 2018-12-26 00:00:00 78 mm[Hg] Height 2018-12-26 00:00:00 68.6 [in_i] BP Systolic 2018-12-26 00:00:00 124 mm[Hg] Body Weight 2018-12-26 00:00:00 227 [lb_av] BP Diastolic 2018-12-08 00:00:00 62 mm[Hg] Height 2018-12-08 00:00:00 68.6 [in_i] BP Systolic 2018-12-08 00:00:00 110 mm[Hg] Body Weight 2018-12-08 00:00:00 227.4 [lb_av] Plan of Care Planned Activity Planned Date Comments Encounters Start Date/Time End Date/Time [facility]counter ID 2019-11-12 09:01:00 2019-11-12 09:01:00 Outpatient [id number] 2019-10-19 00:00:00 2019-10-19 00:00:00 Maik Hassan , DO: [address] [place] [address], Ph. [facility] [id number] 2019-07-10 00:00:00 2019-07-10 00:00:00 Uday olvera MD: [address] [place] [address], Ph. [facility] [id number] 00:00:00 2019-07-05 00:00:00 Uday olvera MD: [address] [place] [address], Ph. [facility] [id number] 00:00:00 2019-06-25 00:00:00 Uday olvera MD: [address] [place] [address], Ph. [facility] [id number] 2019-06-22 00:00:00 2019-06-22 00:00:00 Uday olvera MD: [address] [place] [address], Ph. [facility] [id number] 00:00:00 2019-06-21 00:00:00 Uday olvera MD: [address] [place] [address], Ph. [facility] [place] [id number] 2019-06-20 00:00:00 2019-06-20 00:00:00 Uday olvera MD: [address] [place] [address], Ph. [facility] [place] [id number] 2019-06-19 00:00:00 2019-06-19 00:00:00 Uday olvera MD: [address] [place] [address], Ph[address] [facility] [place] [id number] 2019-06-15 00:00:00 2019-06-15 00:00:00 Uday olvera MD: [address] [place] [address], Ph. [facility] [place] [id number] 2019-04-03 00:00:00 2019-04-03 00:00:00 Uday olvera MD: [address] [place] [address], Ph. [facility] [place] [id number] 2018-12-26 00:00:00 2018-12-26 00:00:00 Giselle Everett MD: [address] [place] [address], Ph. [facility] [place] [id number] 2018-12-08 00:00:00 2018-12-08 00:00:00 Uday olvera MD: [address] [place] [address], Ph. [facility] [id number] Results Test Description Test Time Test Comments Text Results Atomic Results Result Comments US TESTICULAR DOPPLER LTD 2018-05-01 13:48:00 [place] [address] Patient Name: NAVYA GOMES MR #: [id number] : 1950 Age/Sex: 68/M Req #: [id number] Adm Physician: Ordered by: JUSTYNA HUNT MD Report #: [id number] Location: US Room/Bed: Procedure: [id number] US/US TESTICULAR DOPPLER [facility] Exam Date: Exam Time: REPORT STATUS: Signed EXAM: Scrotal Ultrasound with Duplex INDICATION: COMPARISON: None TECHNIQUE: Transverse and longitudinal images were obtained of the scrotum with grayscale imaging, color Doppler and spectral waveform analysis. FINDINGS: Right testis: Size: 3.6 x 1.8 x 2.5 cm, normal in size. Echogenicity: Normal Mass/Cysts: None. Few punctate echogenic foci are seen, representing microcalcifications. Left testis: Size: 3.3 x 2.1 x 2.7 cm, normal in size. Echogenicity: Normal Mass/Cysts: 0.2 cm lateral midpole cyst. Epididymis: Appearance: Normal in size without increased vascularity. Mass/Cysts: 0.3 cm right epididymal head cyst/spermatocele. 0.2 cm left femoral head cyst/spermatocele. Extratesticular: Masses: None Hydrocele: None Varicocele: None Doppler: Normal arterial flow to both testes and symmetrical flow on color Doppler evaluation is seen. No evidence of testicular torsion. Prominent bilateral inguinal lymph nodes are seen, containing fatty hilum. IMPRESSION: 1. No evidence of testicular torsion. 2. Unremarkable scrotal ultrasound exam. 3. Subcentimeter bilateral epididymal head cysts/spermatoceles. 4. Few nonspecific punctate right testicular calcifications. Signed by: Dr. Juan Carlos Dykes MD on 05/01/2018 1:55 PM Dictated By: JUAN CARLOS DYKES MD [id number] Transcribed By: PAMELA on 05/01/18 1358 COPY TO: JUSTYNA HUNT MD US TESTICULAR 2018-05-01 13:48:00 [place] [address] Patient Name: NAVYA GOMES MR #: [id number] : 1950 Age/Sex: 68/M Req #: [id number] Adm Physician: Ordered by: JUSTYNA HUNT MD Report #: [id number] Location: US Room/Bed: Procedure: [id number] US/US TESTICULAR Exam Date: Exam Time: REPORT STATUS: Signed EXAM: Scrotal Ultrasound with Duplex INDICATION: COMPARISON: None TECHNIQUE: Transverse and longitudinal images were obtained of the scrotum with grayscale imaging, color Doppler and spectral waveform analysis. FINDINGS: Right testis: Size: 3.6 x 1.8 x 2.5 cm, normal in size. Echogenicity: Normal Mass/Cysts: None. Few punctate echogenic foci are seen, representing microcalcifications. Left testis: Size: 3.3 x 2.1 x 2.7 cm, normal in size. Echogenicity: Normal Mass/Cysts: 0.2 cm lateral midpole cyst. Epididymis: Appearance: Normal in size without increased vascularity. Mass/Cysts: 0.3 cm right epididymal head cyst/spermatocele. 0.2 cm left femoral head cyst/spermatocele. Extratesticular: Masses: None Hydrocele: None Varicocele: None Dopple r: Normal arterial flow to both testes and symmetrical flow on color Doppler evaluation is seen. No evidence of testicular torsion. Prominent bilateral inguinal lymph nodes are seen, containing fatty hilum. IMPRESSION: 1. No evidence of testicular torsion. 2. Unremarkable scrotal ultrasound exam. 3. Subcentimeter bilateral epididymal head cysts/spermatoceles. 4. Few nonspecific punctate right testicular calcifications. Signed by: Dr. Juan Carlos Dykes MD on 05/01/2018 1:55 PM Dictated By: JUAN CARLOS DYKES MD [id number] Transcribed By: PAMELA on 05/01/18 135 COPY TO: JUSTYNA HUNT MD
--- OUTSIDE RECORDS SUMMARY | 2020-01-29 11:55 | XMS REPORT | Encounter Summary ---
Author Organization Unknown Address [address] [place] [address] Phone [phone] Care Team Providers Care Pillowcase Maker Name Role Phone Dr. Uday Woods 3 [phone] Lauri Yoder MD 107 [phone] Francisca Cullen MD 109 [phone] Reason for Visit Cellulitis and abscess of back Instructions 1. Cellulitis and abscess of back Keflex 500 mg capsule Discussion Note: None recorded. Patient educational handouts: No information available. Plan of Care Reminders Provider Appointments Est Patient 07/10/2019 8:00AM Uday Osullivan MD Lab None recorded. [...] BMI Blood Pressure 5 ft 8.6 in 229.6 lbs 34.3 kg/m2 130/72 mm[Hg] Results Lab Results None recorded. Allergies Code Code System Name Reaction Severity Status Onset 3900 RxNorm Codeine Active Problems Name Status Onset [...] Tobacco Smoking Status Never Smoker Past Encounters 07/05/2019 Cellulitis and Abscess of Back Uday Osullivan MD: [address] [place] [phone], Ph. 06/25/2019 Cellulitis and Abscess of Back; Contact Dermatitis; Obesity Uday Osullivan MD: [address] [place] [phone], Ph. 06/22/2019 Cellulitis and Abscess of Back Uday Osullivan MD: [address] [place] [phone], Ph. 06/21/2019 Cellulitis and Abscess of Back; Body Mass Index 30+ - Obesity Uday Osullivan MD: [address] [place] [phone], Ph. 06/20/2019 Cellulitis and Abscess of Back; Body Mass Index 30+ - Obesity; Morbid Obesity Uday Osullivan MD: [address] [place] [phone], Ph. 06/19/2019 Cellulitis and Abscess of Back; Body Mass Index 30+ - Obesity; Morbid Obesity; Peripheral Vascular Disease Uday Osullivan MD: [address] [place] [phone], Ph. 06/15/2019 Cellulitis and Abscess of Back; Immunization Refused; Influenza Vaccination Declined; Body Mass Index 30+ - Obesity Uday Osullivan MD: [address] [place] [phone], Ph. History of Present Illness Note:F/u on abscess. S/p I&D on 06/19/19. Doing well. Pt completed treatment with doxycycline. Denies pain or fever. Still draining purulent discharge. Review of Systems:ROS as noted in the HPI Review of Systems None recorded. Physical Exam General Adult Exam (male) Reported By: Patient Constitutional: Level of Distress: NAD Eyes: Lids and Conjunctivae: non-i njected, no discharge Neck: Neck: trachea midline Lungs: Respiratory effort: no dyspn ea Musculoskeletal:: Motor Strength and Tone: nor mal, normal tone Neurologic: Gait and Station: normal gai t Skin: Inspection and palpation: ; Induration in the posterior part of R shoulder, 2 cms in diameter approximately. Non tender. Still draining purulent discharge
--- OUTSIDE RECORDS SUMMARY | 2020-01-29 11:55 | XMS REPORT | Encounter Summary ---
Author Organization Unknown Address [address] [place] [address] Phone [phone] Care Team Providers Care Special Event Assistant Name Role Phone Dr. Uday Woods 3 [phone] Lauri Yoder MD 107 [phone] Francisca Cullen MD 109 [phone] Reason for Visit Anxiety; Hyperlipidemia; Annual Depressi on Screening Instructions 1. Hyperlipidemia simvastatin 40 mg tablet high cholesterol: care instructions lipid panel, serum CMP, serum or plasma 2. Anxiety 3. Depression screening learning about depression 4. Benign prostatic hyperplasia 5. Idiopathic peripheral neuropathy handicap placard information handicap placard 6. Varicose veins of lower extremity vein specialist referral Discussion Note: None recorded. Plan of Care Reminders Provider Appointments Est Patient 07/04/2019 8:00AM Uday Osullivan MD Lab Lipid Panel, Serum 04/03/2019 [facility] CMP, Serum or Plasma 04/03/2019 [facility] Referral Vein Specialist Referral 04/03/2019 Montrell Messer MD Procedures None recorded. Surgeries None recorded. Imaging None recorded. Medications Name Start Date clonazepam 0.5 mg tablet TAKE 1 TABLET BY MOUTH ONCE DAILY NEEDED Dulera 100 mcg-5 mcg/actuation HFA aeros ol inhaler Inhale 2 puffs twice a day by inhalation route. finasteride 5 mg tablet Take 1 tablet every day by oral route. Lyrica 200 mg capsule Take 1 capsule every day by oral route as needed. simvastatin 40 mg tablet Take 1 tablet every day by oral route for 90 days. tamsulosin 0.4 mg capsule TAKE 1 CAPSULE BY MOUTH ONCE DAILY DIRECTED Medications Administered None recorded. Vitals Height Weight BMI Blood Pressure 5 ft 8.6 in 233 lbs 34.8 kg/m2 138/72 mm[Hg] Lab Results None recorded. Allergies Code [...] 08/18/20170.5 mL zoster 08/18/20170.65 mL Social History Smoking Status Never Smoker Past Encounters 04/03/2019 Hyperlipidemia; Anxiety; Depression Screening; Benign Prostatic Hyperplasia; Idiopathic Peripheral Neuropathy; Varicose Veins of Lower Extremity Uday Osullivan MD: [address] [place] [address], Ph. History of Present Illness Note:F/u on ALEYDA. Stable. Denies restlessness, nervousness, sadness, suicidal/homicidal thoughts. <div>F/u on HLD. Compliant with meds, diet and exercise. No side effects with statins. </div> Review of Systems Comprehensive General Adult ROS Reported By: Patient Eyes: Eyes: no vision change Cardiovascular: Cardiovascular: no chest kayleen n, no palpitations, no lightheadedness Respiratory: Respiratory: no cough, no wh eezing, no shortness of breath Gastrointestinal: Gastrointestinal: no abdomin al pain, no nausea, no vomiting, no constipation, no diarrhea Musculoskeletal: Musculoskeletal: no muscle a ches, no swelling in the extremities Neurologic: Neurologic: no loss of consc iousness, no headaches Psychiatric: Psych: no depression, no alc ohol abuse, no anxiety, no suicidal thoughts Physical Exam General Adult Exam (male) Reported By: Patient Constitutional: General Appearance: healthy- appearing, obese. Level of Distress: NAD. Ambulation: ambulating normally Psychiatric: Insight: good judgement. Men gary Status: active and alert, normal mood, normal affect. Orientation: to time, to place, to person Eyes: Lids and Conjunctivae: non-i njected, no discharge. Pupils: PERRLA. EOM: EOMI. Sclerae: non-icteric ENMT: Ears: TMs clear. Lips, Teeth , and Gums: no mouth or lip ulcers. Oropharynx: moist mucous membranes, no erythema, no exudates Neck: Neck: supple, trachea midlin e. Lymph Nodes: no cervical LAD Lungs: Respiratory effort: no dyspn ea. Auscultation: breath sounds normal Cardiovascular: Heart Auscultation: RRR, nor mal S1, normal S2, no murmurs. Neck vessels: no carotid bruits Abdomen: Inspection and Palpation: so ft, non-distended, no tenderness, no guarding, no rebound tenderness, no masses Musculoskeletal:: Motor Strength and Tone: nor mal, normal tone. Extremities: no edema, varicosities Neurologic: Gait and Station: normal gai t Skin: Inspection and palpation: ; ecchymoses in forearms
--- OUTSIDE RECORDS SUMMARY | 2020-01-29 11:55 | XMS REPORT | Encounter Summary ---
Author Organization Unknown Address [address] [place] [address] Phone [phone] Care Team Providers Care Graphite Grinder Name Role Phone Dr. Uday Woods 3 [phone] Lauri Yoder MD 107 [phone] Francisca Cullen MD 109 [phone] Reason for Visit Cellulitis and abscess of back Instructions 1. Cellulitis and abscess of back 2. Contact dermatitis 3. Obesity learning about healthy weight Discussion Note: None [...] BMI Blood Pressure 5 ft 8.6 in 232.8 lbs 34.8 kg/m2 130/68 mm[Hg] Lab Results None recorded. [...] pneumococcal conjugate PCV 13 08/18/20170.5 mL zoster .65 mL Social History Tobacco Smoking Status Never Smoker Past Encounters 06/25/2019 Cellulitis and Abscess of Back; Contact Dermatitis; Obesity Uday Osullivan MD: [address] [place] [phone], Ph. 06/22/2019 Cellulitis and Abscess of Back Uday Osullivan MD: [address] [place] [phone], Ph. 06/21/2019 Cellulitis and Abscess of Back; Body Mass Index 30+ - Obesity Uday Osullivan MD: [address] [place] [phone], Ph. 06/20/2019 Cellulitis and Abscess of Back; Body Mass Index 30+ - Obesity; Morbid Obesity Uday Osullivan MD: [address] [place] [phone], Ph. 06/19/2019 Cellulitis and Abscess of Back; Body Mass Index 30+ - Obesity; Morbid Obesity; Peripheral Vascular Disease Uday Osullivan MD: [address] [place] [phone], Ph. 06/15/2019 Cellulitis and Abscess of Back; Immunization Refused; Influenza Vaccination Declined; Body Mass Index 30+ - Obesity Uday Osullivan MD: [address] [place] [phone], Ph. History of Present Illness Note:F/u on abscess s/p I&D. Doing well. Denies pain today. Pt completed treatment with bactrim. Complaining of mild erythema and itchiness around the gauze due to the adhesive tape. Review of Systems Comprehensive General Adult ROS [...] in the posterior part of R shoulder, 3 cms in diameter approximately. Soft. Non tender. Still draining purulent discharge. Erythematous skin around the gauze
--- OUTSIDE RECORDS SUMMARY | 2020-01-29 11:55 | XMS REPORT | Encounter Summary ---
Author Organization Unknown Address [address] [place] [address] Phone [phone] Care Team Providers Care Recycling Collections Driver Name Role Phone Dr. Uday Woods 3 [phone] Lauri Yoder MD 107 [phone] Francisca Cullen MD 109 [phone] Reason for Visit skin leison/mole Instructions 1. [...] n Take 1 g by injection route. [id number] Vitals Height Weight BMI Blood Pressure 5 [...] Index 30+ - Obesity Uday Osullivan MD: [address] [place] [address], Ph. History of Present Illness Note:Pt presents with a bump in the posterior right shoulder. Pt first noticed the bump about 6-8 months ago but it did not cause any pain. Pt states that it is painful to touch, rates the pain 8/10 since a few days ago. Pt denies itchiness or trying any otc medications. Pt states that he has not seen a doctor for the lesion, States that years ago he one on his chest but went away on its own, at that time lesion was not even half the size as the one on the shoulder and did not cause him any pain. Review of Systems Comprehensive General Adult ROS [...]
--- OUTSIDE RECORDS SUMMARY | 2020-01-29 11:55 | XMS REPORT | Encounter Summary ---
Author Organization Unknown Address [address] [place] [address] Phone [phone] Care Team Providers Care Manufacturing Associate Name Role Phone Dr. Uday Woods 3 [phone] Lauri Yoder MD 107 [phone] Francisca Cullen MD 109 [phone] Reason for Visit other - see typed reason Instructions 1. Cough Dulera 100 mcg-5 mcg/actuation HFA aer osol inhaler 2. Body mass index 30+ - obesity body mass index: care instructions learning about healthy weight 3. Dry eyes Discussion Note: None recorded. Plan of Care Reminders Provider Appointments Return to Office on or around 03/09/2019 Uday Osullivan MD Lab None recorded. Referral None recorded. Procedures None recorded. Surgeries None recorded. Imaging None recorded. Medications Name Start Date clonazepam 0.5 mg tablet TAKE 1 TABLET BY MOUTH ONCE DAILY NEEDED Dulera 100 mcg-5 mcg/actuation HFA aeros ol inhaler Inhale 2 puffs twice a day by inhalation route. finasteride 5 mg tablet Take 1 tablet every day by oral route. ketorolac 0.5 % eye drops INSTILL 1 DROP (0.25 MG) INTO AFFECTED EYE(S) BY OPHTHALMIC ROUTE 4 TIMES PER DAY NEEDED ketorolac tromethamine 0.5 % soln Lyrica 200 mg capsule Take 1 capsule every day by oral route as needed. simvastatin 40 mg tablet TAKE 1 TABLET BY MOUTH ONCE DAILY tamsulosin 0.4 mg capsule TAKE 1 CAPSULE BY MOUTH ONCE DAILY DIRECTED Medications Administered None recorded. Vitals Height Weight BMI Blood Pressure 5 ft 8.6 in 227 lbs 33.9 kg/m2 124/78 mm[Hg] Lab Results Date Name Specimen Result Interpretation Description Value Range Status Address 12/08/2018 CMP, Serum or Plasma Alt 25 U/L 0-55 U /L [facility] Laboratory: [address] [place] 20 U/L 5-34 U/L [facility]: [address] [place] Bun 15.0 mg/dL 8.4-25.7 mg/dL Final [facility] [address] [facility] Phos 74 unit/L 40-150 unit/L Fin [facility]: [address] [facility] High Glucose 104 mg/dL 70-99 mg/dL Final [facility] [address] [facility] Albumin 4.0 g/dL 3.5-5.0 g/dL [facility] Laboratory: [address] [place] [address] Creatinine 0.91 mg/dL 0.72-1.25 mg/d L [facility] Laboratory: [address] [place] [address] eGFR Non- >60 mL/mi n/1.73m2 Final [facility] Laboratory: [address] Total Bilirubin 0.8 mg/dL 0.2-1.2 mg /dL [facility] Laboratory: [address] eGFR - >60 mL/min/1 .73m2 [facility]: [address] [facility] Sodium 139 mEq/L 136-145 mEq/L [facility]: [address] [place] [address] Potassium 5.0 mEq/L 3.5-5.1 mEq/L [facility] Laboratory: [address] Chloride 106 mmol/L 98-107 mmol/L [facility] Laboratory: [address] Total Protein 7.2 g/dL 6.4-8.3 g/dL [facility]: [address] [facility] High Calcium 10.4 mg/dL 8.8-10.0 mg/dL [facility]: [address] [facility] Co2 25.2 mmol/L 23.0-31.0 mmol/L [facility] Laboratory: [address] [place] [address] Anion Gap 8 calc Final [facility]: [address] [facility] 12/08/2018 Lipid Panel, Serum Low Hdl 35 mg/dL 40-60 mg/dL Final [facility] Laboratory: [address] [place] [address], [place] Triglyceride 111 mg/dL 0-149 mg/dL F inal [facility] Laboratory: [address] [place] [address], [place] VLDL Calc. 22 mg/dL Final Vi [facility] Laboratory: [address] [place] [address], [place] cholesterol/HDL Ratio 3.6 mg/dL Final [facility] Laboratory: [address] [place] [address], [place] non-HDL Cholesterol Calc. 91 mg/dL 0 -160 mg/dL Final [facility] Laboratory: [address] [place] [address], [place] Cholesterol 126 mg/dL 0-199 mg/dL Fi nal [facility] Laboratory: [address] [place] [address], [place] LDL Calc. 69 mg/dL 0-130 mg/dL Final [facility] Laboratory: [address] [place] [address], [place] Allergies Code Code System Name Reaction Severity Status Onset 2670 RxNorm Codeine Active Problems Name Status Onset Date Source Hyperlipidemia Active 06/28/2016 Benign Prostatic Hyperplasia Active 06/28/2016 Anxiety Active 11/22/2017 Peripheral Nerve Disease Active 07/19/2018 Procedures Date Name Performed by 06/15/2012 Colonoscopy Information not avai lable Vaccine List Vaccine Type pneumococcal conjugate PCV 13 08/18/20170.5 mL zoster 08/18/20170.65 mL Social History Smoking Status Never Smoker Past Encounters 12/26/2018 Cough; Body Mass Index 30+ - Obesity; Dry Eyes Giselle Everett MD: [address] [place] [address], Ph. 12/08/2018 Anxiety; Hyperlipidemia; Allergic Conjunctivitis; Influenza Vaccination Declined; Immunization Refused; Body Mass Index 30+ - Obesity; Malignant Lymphoma (Clinical); Senile Purpura Uday Osullivan MD: [address] [place] [address], Ph. History of Present Illness Note:68yo male presents with for evaluation of cough & irritated eyes. Was seen earlier this month by PCP, Dr Woods for visit. [place] [employer] [place] & developed cough last week from smoke. Went to [facility] ER last Tuesday for evaluation after smoke exposure.Dry cough with sore throat. Also with dry eyes - has been using ketorolac 0.5% eye drops for past few weeks -stings when first placed in eye, then less dry. No redness or pain in eye. No change in vision, spots in vision. No headache.<div>No cough, wheezing, shortness of breath.</div><div>Allergic to codeine - chills & fatigue.</div><div>Nonsmoker. No alcohol.</div> Review of Systems:ROS as noted in the HPI Review of Systems Comprehensive General Adult ROS Reported By: Patient Constitutional: Constitutional: no fever Eyes: Eyes: no vision change, dry eyes, irritation Cardiovascular: Cardiovascular: no chest kayleen n Respiratory: Respiratory: no wheezing, no shortness of breath, cough Gastrointestinal: Gastrointestinal: no abdomin al pain Neurologic: [...] place, to person Eyes: Lids and Conjunctivae: no di scharge, injected. Pupils: PERRLA. EOM: EOMI. Sclerae: non-icteric ENMT: [...] no murmurs. Neck vessels: no carotid bruits Musculoskeletal:: Motor Strength and Tone: nor mal, normal tone. Extremities: no edema Neurologic: Gait and Station: normal gai t Skin: Inspection and palpation: ; ecchymoses in forearms
--- OUTSIDE RECORDS SUMMARY | 2020-01-29 11:55 | XMS REPORT | Encounter Summary ---
Author Organization Unknown Address [address] [place] [address] Phone [phone] Care Team Providers Care Legislative Aide Name Role Phone Dr. Uday Woods 3 [phone] Lauri Yoder MD 107 [phone] Francisca Cullen MD 109 [phone] Reason for Visit Anxiety; Hyperlipidemia; Bilateral eye p roblem/disorder Instructions 1. Anxiety 2. Hyperlipidemia high cholesterol: care instructions CMP, serum or plasma lipid panel, serum 3. Allergic conjunctivitis ketorolac 0.5 % eye drops 4. Influenza vaccination declined 5. Immunization refused 6. Body mass index 30+ - obesity body mass index: care instructions learning about healthy weight 7. Malignant lymphoma (clinical) 8. Senile purpura Discussion Note: None recorded. Plan of Care Reminders Provider Appointments Return to Office on or around 03/09/2019 Uday Osullivan MD Lab CMP, Serum or Plasma 12/08/2018 [facility] Lipid Panel, Serum 12/08/2018 [facility] Referral None recorded. Procedures None recorded. Surgeries None recorded. Imaging None recorded. Medications Name Start Date clonazepam 0.5 mg tablet TAKE 1 TABLET BY MOUTH ONCE DAILY NEEDED finasteride 5 mg tablet Take 1 tablet every day by oral route. ketorolac 0.5 % eye drops INSTILL 1 DROP (0.25 MG) INTO AFFECTED EYE(S) BY OPHTHALMIC ROUTE 4 TIMES PER DAY NEEDED Lyrica 200 mg capsule Take 1 capsule every day by oral route as needed. simvastatin 40 mg tablet TAKE 1 TABLET BY MOUTH ONCE DAILY tamsulosin 0.4 mg capsule TAKE 1 CAPSULE BY MOUTH ONCE DAILY DIRECTED Medications Administered None recorded. Vitals Height Weight BMI Blood Pressure 5 ft 8.6 in 227.4 lbs 34 kg/m2 110/62 mm[Hg] Lab Results None recorded. Allergies Code Code System Name Reaction Severity Status Onset 3011 RxNorm Codeine Active Problems Name Status Onset Date Source Hyperlipidemia Active 06/28/2016 Benign Prostatic Hyperplasia Active 06/28/2016 Anxiety Active 11/22/2017 Peripheral Nerve Disease Active 07/19/2018 Procedures Date Name Performed by 06/15/2012 Colonoscopy Information not avai lable Vaccine List Vaccine Type pneumococcal conjugate PCV 13 08/18/20170.5 mL zoster 08/18/20170.65 mL Social History Smoking Status Never Smoker Past Encounters 12/08/2018 Anxiety; Hyperlipidemia; Allergic Conjunctivitis; Influenza Vaccination Declined; Immunization Refused; Body Mass Index 30+ - Obesity; Malignant Lymphoma (Clinical); Senile Purpura Uday Osullivan MD: [facility] [place] [address], Ph. History of Present Illness Note:F/u on ALEYDA. Doing well. Denies restlessness, nervousness, sadness, suicidal/homicidal thoughts. Energy and motivation level are ok. <div>F/u on HLD. Compliant with meds, diet and exercise. No side effects with statins. </div ><div>Burning sensation and erythema in the eyes since 1 month ago. Denies blurry vision, runny nose or nasal congestion.</div> Review of Systems Comprehensive General Adult ROS [...]
[2020-01-29] MEDS ORDERED: SODIUM CHLORIDE 0.9% 1000ML 1,000 ML IV STA (11:58)
[2020-01-29 12:28] LABS: BASOPHILS % 0.6 % (0.0-1.0); EOSINOPHILS # (AUTO) 0.2 (0.0-0.4); EOSINOPHILS % 2.9 % (0.0-6.0); HEMATOCRIT 41.8 % (38.2-49.6); HEMOGLOBIN 14.4 g/dL (14.0-18.0); LYMPHOCYTES # (AUTO) 2.2 (1.0-3.2); MEAN CORPUSCULAR HEMOGLOBIN 30.3 pg (28-32); MEAN CORPUSCULAR HGB CONC 34.4 g/dL (31-35); MONOCYTES # (AUTO) 0.8 (0.2-0.8); MONOCYTES % 10.9 % (4.4-11.3); NEUTROPHILS # (AUTO) 3.7 (2.1-6.9); NEUTROPHILS % 53.3 % (38.7-80.0); PLATELET COUNT 200 x10e3/uL (140-360); RED BLOOD COUNT 4.75 x10e6/uL (4.3-5.7); RED CELL DISTRIBUTION WIDTH 13.2 % (11.7-14.4)
[2020-01-29 12:40] LABS: INR 1.08; PARTIAL THROMBOPLASTIN TIME 26.9 seconds (23.8-35.5); PROTHROMBIN TIME 14.7 seconds (11.9-14.5)
[2020-01-29 12:51] LABS: ALANINE AMINOTRANSFERASE 42 IU/L (0-55); ALBUMIN 3.9 g/dL (3.5-5.0); ALBUMIN/GLOBULIN RATIO 1.3 (0.8-2.0); ALKALINE PHOSPHATASE 62 IU/L (40-150); ANION GAP 12.3 mmol/L (8-16); BLOOD UREA NITROGEN 15 mg/dL (7-26); BUN/CREATININE RATIO 16 (6-25); CALCIUM 9.7 mg/dL (8.4-10.2); CARBON DIOXIDE 25 mmol/L (22-29); CHLORIDE 107 mmol/L (98-107); CREATINE KINASE 178 IU/L (30-200); CREATININE, SERUM 0.96 mg/dL (0.72-1.25); EST GLOMERULAR FILTRATION RATE > 60 ML/MIN (60-); GLUCOSE 126 mg/dL (74-118); POTASSIUM 4.3 mmol/L (3.5-5.1); SODIUM 140 mmol/L (136-145)
--- NOTE | 2020-01-29 12:57 | Diagnostic Imaging Report ---
Examination: CT BRAIN WO CONTRAST History:Fall with head injury Comparison studies:None Technique: Axial images were obtained from the skull base to the vertex. Coronal and sagittal images reconstructed from the axial data. Dose modulation, iterative reconstruction, and/or weight based adjustment of the mA/kV was utilized to reduce the radiation dose to as low as reasonably achievable. Intravenous contrast: None Findings: Scalp: No abnormalities. Bones: No fractures, blastic or lytic lesions. Brain sulci: Appropriate for age. Ventricles: Normal in size and configuration. No hydrocephalus. Extra-axial space: No abnormalities. Parenchyma: A 1 cm dilated perivascular spaces seen along the inferior margin of the right putamen No masses, hemorrhage, or acute or chronic cortical based vascular insults.. Sellar/suprasellar region: No abnormalities. Craniocervical junction: Patent foramen magnum. No Chiari one malformation. Incidental findings: None. Impression: No acute intracranial abnormalities. Signed by: Dr. Mercedes Mccann M.D. on 01/29/2020 12:53 PM
--- NOTE | 2020-01-29 13:05 | Diagnostic Imaging Report ---
Examination: CT CERVICAL SPINE WO CONTRAST HISTORY:Fall with neck injury. COMPARISON:None. TECHNIQUE: Multidetector helical axial images were obtained without contrast from the foramen magnum to T1. Coronal and sagittal reformatted images were done. Bone and soft tissue windows were evaluated. Dose modulation, iterative reconstruction, and/or weight based adjustment of the mA/kV was utilized to reduce the radiation dose to as low as reasonably achievable. FINDINGS: Alignment:Normal alignment with straightening of normal lordosis. Vertebrae: Normal height and density. No acute fracture, infection or neoplasm. Disc space heights: Severely narrowed at C2-C3, C3-C4, C5-C6. Caliber of spinal canal: Developmentally normal. Posterior fossa and craniocervical junction: Foramen magnum patent. No Chiari 1 malformation. Soft tissues: No abnormality. Degenerative changes: C2-C3: Mild bilateral uncovertebral and facet arthropathy result in mild bilateral neural foraminal narrowing and mild canal stenosis. C3-C4: Diffuse disc osteophyte complex and bilateral uncovertebral and facet arthropathy result in moderate right and mild left neural foraminal narrowing and moderate to severe canal stenosis. C4-C5: Asymmetric to the left disc osteophyte complex and bilateral uncovertebral and facet arthropathy result in mild right and moderate left neural foraminal narrowing. No canal stenosis. C5-C6: Diffuse disc osteophyte complex and bilateral uncovertebral arthropathy result in severe bilateral neural foraminal narrowing. No canal stenosis. C6-C7: Mild bilateral uncovertebral arthropathy result in mild bilateral neural foraminal narrowing. No canal stenosis. C7-T1: Bilateral facet arthropathy. No disc herniation or canal or foraminal stenosis. Visualized lung apices: No abnormalities. IMPRESSION: 1. No acute abnormality, specifically, no acute fracture. 2. Degenerative changes, as above. Signed by: Dr. Mercedes Mccann M.D. on 01/29/2020 1:02 PM
--- NOTE | 2020-01-29 13:30 | Diagnostic Imaging Report ---
CT of the chest, without contrast. History: Fall, chest pain. Comparison: None available. Technique: Multidetector CT scanning of the chest was performed from the level of the apices to the upper abdomen without contrast. Coronal and sagittal multiplanar reformations were obtained. RADIATION DOSE: Total DLP: 614.19 mGy*cm Dose modulation, iterative reconstruction, and/or weight based adjustment of the mA/kV was utilized to reduce the radiation dose to as low as reasonably achievable. FINDINGS: The thyroid and remaining visualized structures within the base of neck in straight no significant abnormalities. The thoracic aorta is normal course and caliber. The heart is not enlarged. Atherosclerotic calcification are noted within the coronary arteries. No abnormal pericardial fluid is present. Nonspecific normal sized mediastinal lymph nodes are noted. A pretracheal lymph node measures 1.0 cm in short axis. There is no abnormal axillary or hilar lymph node enlargement. The trachea and proximal airways are patent. Scattered subcentimeter pulmonary nodules are identified bilaterally. Calcified granulomas noted within the right lung base. A nodule within the left upper lobe measures 5 mm (axial image 24). A nodule within the left lower lobe measures 5 mm (axial image 26). A nodule within the right lower lobe measures 5 mm (axial image 44). There is no evidence for consolidation, pneumothorax, or pleural effusion. Minimal stranding noted within the mesentery of the upper abdomen which is incompletely evaluated on the CT examination of the chest. The remaining visualized upper abdominal contents demonstrate no significant abnormalities. There are degenerative changes of the thoracic spine. There is no evidence of acute fracture or dislocation. Specifically no sternal fracture is identified. The extrathoracic soft tissues are unremarkable. IMPRESSION: 1. No evidence for acute traumatic injury within the chest. 2. Nonspecific scattered subcentimeter pulmonary nodules identified bilaterally measuring up to 5 mm. In a low-risk patient, no follow-up is warranted. In a high-risk patient, consider [address] follow up examination. Signed by: Dr. Pascual Davidson MD on 01/29/2020 1:27 PM
[2020-01-29] MEDS ORDERED: SODIUM CHLORIDE 0.9% 1000ML 1,000 ML IV SCH (13:45)
[2020-01-29] MEDS ORDERED: ONDANSETRON HCL INJ 2MG/ML 2ML 2 MG/ML VIAL IV PRN (13:45)
[2020-01-29] MEDS ORDERED: ASPIRIN 325 MG TAB EC PO ONE (13:45)
[2020-01-29] MEDS ORDERED: TETANUS/DIPHTHERIA TOX ADULT 0.5 ML SYR IM ONE (14:15)
[2020-01-29 16:40] LABS: CLARITY,URINE CLEAR (CLEAR); COLOR,URINE YELLOW (YELLOW); LEUKOCYTE ESTERASE ,URINE NEGATIVE (NEGATIVE); NITRITE,URINE NEGATIVE (NEGATIVE); PROTEIN,URINE DIPSTICK NEGATIVE (NEGATIVE)
[2020-01-29 16:41] LABS: BILIRUBIN,URINE NEGATIVE (NEGATIVE); KETONES,URINE NEGATIVE (NEGATIVE); URINE UROBILINOGEN 0.2 mg/dL (0.2 - 1)
[2020-01-29 17:02] VITALS: BP 124/84
[2020-01-29 17:08] VITALS: BP 153/73
[2020-01-29 17:15] VITALS: BP 153/73
[2020-01-29 17:27] VITALS: BP 153/73
[2020-01-29] MEDS ORDERED: MORPHINE SULFATE 2 MG/ML SYR 1ML IV PRN (19:30)
[2020-01-29] MEDS ORDERED: HYDROCODONE/APAP 7.5MG-325MG 1 EA TAB PO PRN (19:30)
[2020-01-29] MEDS ORDERED: TRAMADOL HCL 50 MG TAB PO PRN (19:30)
[2020-01-29 20:53] LABS: CREATINE KINASE 134 IU/L (30-200)
[2020-01-29 21:00] VITALS: BP 153/73
[2020-01-29] MEDS ORDERED: FAMOTIDINE 20 MG/2 ML VIAL IV SCH (21:00)
[2020-01-29 21:27] VITALS: BP 138/76
[2020-01-29] MEDS ORDERED: BUSPIRONE HCL5 MG PO (23:25)
[2020-01-29] MEDS ORDERED: SIMVASTATIN40 MG PO (23:25)
[2020-01-30] VITALS: BP 146/72
[2020-01-30 00:51] LABS: CREATINE KINASE 129 IU/L (30-200)
[2020-01-30 04:00] VITALS: BP 129/77
[2020-01-30 05:51] LABS: BASOPHILS # (AUTO) 0.1 (0.0-0.1); BASOPHILS % 0.5 % (0.0-1.0); EOSINOPHILS # (AUTO) 0.2 (0.0-0.4); HEMATOCRIT 40.7 % (38.2-49.6); HEMOGLOBIN 13.6 g/dL (14.0-18.0); LYMPHOCYTES # (AUTO) 2.1 (1.0-3.2); LYMPHOCYTES % 20.4 % (18.0-39.1); MEAN CORPUSCULAR HEMOGLOBIN 29.9 pg (28-32); MEAN CORPUSCULAR HGB CONC 33.4 g/dL (31-35); MEAN CORPUSCULAR VOLUME 89.5 fL (81-99); MONOCYTES # (AUTO) 1.1 (0.2-0.8); MONOCYTES % 10.9 % (4.4-11.3); NEUTROPHILS # (AUTO) 6.7 (2.1-6.9); NEUTROPHILS % 65.9 % (38.7-80.0); PLATELET COUNT 195 x10e3/uL (140-360); RED BLOOD COUNT 4.55 x10e6/uL (4.3-5.7); RED CELL DISTRIBUTION WIDTH 13.3 % (11.7-14.4)
[2020-01-30 06:04] LABS: CREATINE KINASE 114 IU/L (30-200)
[2020-01-30 06:28] LABS: ALANINE AMINOTRANSFERASE 31 IU/L (0-55); ALBUMIN 3.4 g/dL (3.5-5.0); ALBUMIN/GLOBULIN RATIO 1.3 (0.8-2.0); ALKALINE PHOSPHATASE 56 IU/L (40-150); ANION GAP 10.6 mmol/L (8-16); BLOOD UREA NITROGEN 12 mg/dL (7-26); BUN/CREATININE RATIO 12 (6-25); CALCIUM 9.2 mg/dL (8.4-10.2); CARBON DIOXIDE 26 mmol/L (22-29); CHLORIDE 108 mmol/L (98-107); CHOL/HDL RATIO 2.6 (3.9-4.7); CHOLESTEROL 97 MD/DL (0-199); CREATININE, SERUM 0.97 mg/dL (0.72-1.25); EST GLOMERULAR FILTRATION RATE > 60 ML/MIN (60-); GLUCOSE 120 mg/dL (74-118); HDL CHOLESTEROL 37 MG/DL (40-60); LDL CHOLESTEROL 44 MG/DL (60-130); POTASSIUM 4.6 mmol/L (3.5-5.1); SODIUM 140 mmol/L (136-145); TRIGLYCERIDES 81 MG/DL (0-149)
[2020-01-30] MEDS ORDERED: ACETAMINOPHEN 325 MG TAB PO PRN (07:30)
[2020-01-30] MEDS ORDERED: HYDRALAZINE HCL 20 MG/ML VIAL IV PRN (07:30)
[2020-01-30 08:18] VITALS: BP 140/69
[2020-01-30 08:55] VITALS: BP 140/69
[2020-01-30] MEDS ORDERED: DOCUSATE SODIUM 100 MG CAP PO SCH (09:00)
[2020-01-30] MEDS ORDERED: ASPIRIN 81 MG ENTERIC COATED PO SCH (09:00)
[2020-01-30 10:20] VITALS: BP 140/69
[2020-01-30] MEDS ORDERED: FAMOTIDINE 20 MG TAB PO ONE (10:30)
[2020-01-30] MEDS ORDERED: ONDANSETRON HCL 4 MG ORAL DISINTEGRATING TAB PO PRN (11:15)
--- NOTE | 2020-01-30 12:26 | Discharge Summary ---
PERTINENT HISTORY AND PHYSICAL FINDINGS/CHIEF COMPLAINT: Fall. The patient was unsure whether he passed out or not. HISTORY OF PRESENT ILLNESS: Mr. Tran is a 69-year-old male admitted via the emergency department from home after a fall with injuries to the head, chest, right knee and left knee. CT of the brain, chest, and C-spine were essentially negative for acute abnormalities. He was stepping into a motor home and became off balance, fell to a gravel driveway and was unconscious per documentation and experienced syncope subsequently awakening on the driveway, bleeding from his scalp and no neck pain or seizure. PAST MEDICAL HISTORY: Hyperlipidemia, peripheral neuropathy, dislocated left shoulder, previous fall with left arm injury. PAST SURGICAL HISTORY: Appendectomy. FAMILY HISTORY: Father had an [place] at age 72, which was cause of . Mother had gallbladder burst. SOCIAL HISTORY: Denies tobacco, alcohol, or illicit drug use. ALLERGIES: CODEINE. Upon seeing the patient today, he does admit that he has difficulty with balance at times. He denies any dizziness. Vital signs temperature 97.2, heart rate 68, blood pressure 129/77, respiratory rate 17, oxygen saturation 95%, 2.5 cm laceration at the scalp, which was cared for in the emergency department by the ED MD. Yesterday, the CT of the brain was negative. CT of the cervical spine was negative for acute fracture. The CT of the chest was negative. A 12-lead ECG showed normal sinus rhythm with a heart rate of 72. Bilateral carotid Doppler ultrasound was done and read by Dr. Laughlin, which showed plaque in the right internal carotid artery consistent with [id number] stenosis of 16% to 49%. There was plaque within the left internal carotid artery compatible with a 1% to 15% stenosis. Sodium 140, potassium 4.6, chloride 108, CO2 of 26, BUN 12, creatinine 0.97, glucose 120. WBC 10, hemoglobin 13.6, hematocrit 40.7, platelets 195. Urinalysis was negative. Triglycerides 81, cholesterol 97, LDL 44, HDL 37. His CK-MB was slightly elevated at 5.2 on the 1st set of cardiac enzymes, which also included CK 137, troponin less than 0.001. Other cardiac enzymes were negative. ADMITTING DIAGNOSES: 1. Fall at home with syncope. 2. Syncope. 3. Single scalp laceration. 4. Obesity with BMI of 33.46. DISCHARGE DIAGNOSES: 1. Fall at home with syncope. 2. Syncope. 3. Single scalp laceration. 4. Obesity with BMI of 33.46. The patient will be discharged home on a cardiac diet. Activity level as tolerated. He does not recall the name of his current PCP. The patient should follow up with his PCP in 1 to 2 weeks. Orders already been sent to [facility] for outpatient physical therapy, which was also recommended by the physical therapist that saw the patient today. Dictated by Malvin Flores NP Naren Parish MD HWP/MODL /[id number]
== END 2020-01-30 12:15 | disposition home or self-care (01) ==
LOC: ER 11:50 → ERHOLD 13:41 → MED/SURG 16:43
PROVIDERS: ADMIT Internal Medicine; ATTEND Internal Medicine
DX: R55 Syncope and collapse (principal); S01.01XA Laceration without foreign body of scalp, initial encounter; W10.8XXA Fall (on) (from) other stairs and steps, initial encounter; Y93.89 Activity, other specified; Y92.018 Other place in single-family (private) house as the place of occurrence of the external cause; E78.5 Hyperlipidemia, unspecified; G62.9 Polyneuropathy, unspecified; Z88.5 Allergy status to narcotic agent; Z82.49 Family history of ischemic heart disease and other diseases of the circulatory system; E66.9 Obesity, unspecified; Z68.33 Body mass index [BMI] 33.0-33.9, adult; Z91.81 History of falling; S80.212A Abrasion, left knee, initial encounter; S80.211A Abrasion, right knee, initial encounter
CPT/HCPCS: 36415; 70450; 71250; 72125; 80053; 80061; 81001; 82550; 82553; 83735; 83880; 84484; 85025; 85610; 85730; 87086; 90471; 90714; 93005; 93880; 99284; G0378; J7030

== ENCOUNTER 2020-02-27 08:57 | Outpatient (RCR) | payer MEDICARE, OTHER ==
[~2020-02-27 08:57] MED LIST changes: +BUSPIRONE HCL5 MG PO; +SIMVASTATIN40 MG PO
== END 2020-03-02 ==
LOC: PT 08:57
PROVIDERS: ATTEND Internal Medicine
DX: R26.89 Other abnormalities of gait and mobility (principal); H81.10 Benign paroxysmal vertigo, unspecified ear; R29.6 Repeated falls; M62.81 Muscle weakness (generalized)
CPT/HCPCS: 97139

== ENCOUNTER 2020-03-07 08:00 | Outpatient (RCR) | payer MEDICARE, OTHER | END 2020-04-01 | LOC: PT 08:00 | PROVIDERS: ATTEND Internal Medicine | DX: R26.89 Other abnormalities of gait and mobility (principal); R29.6 Repeated falls; M62.81 Muscle weakness (generalized) ==